=== PATIENT | female | born 1985 | race Two or more races ===

== ENCOUNTER 2016-07-10 17:53 | Emergency (ER) | payer OTHER ==
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
[2016-07-10] MEDS ORDERED: HYDROCODONE/APAP 10/325 TAB PO ONE (18:35)
[2016-07-10] MEDS ORDERED: IBUPROFEN 600 MG TAB PO ONE (18:35)
[2016-07-10] MEDS ORDERED: HYDROCODONE/APAP 5/325 TAB ONE (18:46)
[2016-07-10 19:16] VITALS: BP 138/80; PULSE 103; RESP 16; TEMP 97.9; O2SAT 96
== END 2016-07-10 19:16 | disposition home or self-care (01) ==
LOC: EDUNIT#
DX: S39.012A Strain of muscle, fascia and tendon of lower back, initial encounter (principal); V49.88XA Car occupant (driver) (passenger) injured in other specified transport accidents, initial encounter; Y92.410 Unspecified street and highway as the place of occurrence of the external cause; Y99.8 Other external cause status; Y93.89 Activity, other specified